=== PATIENT | male | born 1980 | race Two or more races ===

== ENCOUNTER 2018-06-03 13:12 | Emergency (ER) | payer OTHER ==
[~2018-06-03] VITALS: Ht 182.9 cm; Wt 117.0 kg
--- NOTE | 2018-06-03 13:15 | NUR ---
PT TO ER BED 10. HERE FOR CHEST PAIN /10 TO LUE X 3 DAYS. PT ALSO ENDORSES COUGH AND FEVER. GOWNED AND PLACED ON MONITOR. VSS. AWAITING MD SEYMOUR.
--- NOTE | 2018-06-03 13:23 | NUR ---
MORAIMA LORD AT BEDSIDE FOR EVAL.
--- NOTE | 2018-06-03 13:54 | NUR ---
IV ACCESS STARTED. BLOOD DRAWN FOR LABS.
[2018-06-03 13:55] LABS: BASOPHILS # (AUTO) 0.1 /CMM (0.0-0.2); BASOPHILS % (AUTO) 1.6 % (0.0-2.0); EOSINOPHILS % (AUTO) 3.1 % (0.0-6.0); HEMATOCRIT 46 % (39-51); HEMOGLOBIN 15.2 g/dL (13.5-17.5); LYMPHOCYTES # (AUTO) 3.4 /CMM (0.8-4.8); LYMPHOCYTES % (AUTO) 37.8 % (20.0-44.0); MEAN CORPUSCULAR HEMOGLOBIN 29 PG (26.0-33.0); MEAN CORPUSCULAR HGB CONC 33 g/dl (31.0-36.0); MEAN CORPUSCULAR VOLUME 88 fL (80-96); MONOCYTES # (AUTO) 0.6 /CMM (0.1-1.30); MONOCYTES % (AUTO) 6.9 % (2.0-12.0); NEUTROPHILS # (AUTO) 4.5 /CMM (1.8-8.9); NEUTROPHILS % (AUTO) 50.6 % (43.0-81.0); PLATELET COUNT (AUTO) 231 /CMM (150-450); RED BLOOD CELL COUNT(AUTO) 5.26 MIL/uL (4.5-6.0); WHITE BLOOD COUNT (AUTO) 8.9 K/uL (4.3-11.0)
[2018-06-03 14:05] LABS: CALCIUM, SERUM 9.1 mg/dL (8.5-10.1); CARBON DIOXIDE 29 mmol/L (21-32); CHLORIDE 106 mmol/L (98-107); CREATININE 1.2 mg/dL (0.6-1.3); GLUCOSE 106 mg/dL (74-106); SODIUM SERUM 139 mmol/L (136-145); UREA NITROGEN, BLOOD 17 mg/dL (7-18)
[2018-06-03 14:08] LABS: INR 0.91 (0.85-1.15)
[2018-06-03 14:13] LABS: TROPONIN I < 0.017 ng/mL (0.00-0.056)
[2018-06-03 14:17] LABS: B-TYPE NATRIURETIC PEPTIDE 129 PG/ML (0-125)
[2018-06-03 14:27] LABS: APPEARANCE,URINE Clear (CLEAR); BILIRUBIN,URINE Negative (NEGATIVE); BLOOD, URINE Negative Ery/uL (NEGATIVE); COLOR,URINE Yellow (YELLOW); KETONES,URINE Negative (NEGATIVE); LEUKOCYTE ESTERASE ,URINE Negative (NEGATIVE); NITRITE, URINE Negative (NEGATIVE); PH,URINE 6.5 (5.0-8.0); PROTEIN,URINE Negative (NEGATIVE); UGLUCOSE Negative (NEGATIVE); UROBILINOGEN,URINE 0.2 EU/dL (0.2)
--- NOTE | 2018-06-03 14:34 | NUR ---
RADIOLOGY AT BEDSIDE FOR CHEST XRAY.
--- NOTE | 2018-06-03 17:40 | NUR ---
Patient discharged to home in stable condition. Written and verbal after care instructions given. Patient verbalizes understanding of instruction. IV removed. Catheter intact and site benign. Pressure and 4x4 applied to site. No bleeding noted.
[2018-06-03 17:41] VITALS: BP 126/78
== END 2018-06-03 17:43 | disposition home or self-care (01) ==
LOC: ER 13:18
DX: R07.89 Other chest pain (principal); R60.9 Edema, unspecified; F17.210 Nicotine dependence, cigarettes, uncomplicated
CPT/HCPCS: 36415; 71045; 80048; 81001; 83880; 84484 ×2; 85025; 85730; 93005; 99285; A4606; Z7610; 81000-TC

== ENCOUNTER 2019-04-01 12:53 | Emergency (ER) | payer OTHER ==
[~2019-04-01] VITALS: Ht 182.9 cm; Wt 105.7 kg
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
[2019-04-01] MEDS ORDERED: IV NS 0.9% 1,000 ML BAG IV ONE (13:30)
[2019-04-01 13:43] LABS: BASOPHILS % (AUTO) 0.8 % (0.0-2.0); EOSINOPHILS % (AUTO) 1.4 % (0.0-6.0); HEMATOCRIT 42 % (39-51); HEMOGLOBIN 13.9 g/dL (13.5-17.5); LYMPHOCYTES # (AUTO) 0.9 /CMM (0.8-4.8); LYMPHOCYTES % (AUTO) 18.3 % (20.0-44.0); MEAN CORPUSCULAR HGB CONC 33 g/dl (31.0-36.0); MEAN CORPUSCULAR VOLUME 89 fL (80-96); MONOCYTES # (AUTO) 0.6 /CMM (0.1-1.30); MONOCYTES % (AUTO) 11.2 % (2.0-12.0); NEUTROPHILS # (AUTO) 3.4 /CMM (1.8-8.9); NEUTROPHILS % (AUTO) 68.3 % (43.0-81.0); PLATELET COUNT (AUTO) 191 /CMM (150-450)
[2019-04-01 13:53] LABS: CALCIUM, SERUM 9.3 mg/dL (8.5-10.1); CARBON DIOXIDE 27 mmol/L (21-32); CHLORIDE 102 mmol/L (98-107); GLUCOSE 158 mg/dL (74-106); POTASSIUM 3.7 mmol/L (3.5-5.1); SODIUM SERUM 140 mmol/L (136-145); UREA NITROGEN, BLOOD 20 mg/dL (7-18)
[2019-04-01 13:59] LABS: ALANINE AMINOTRANSFERASE 29 U/L (12-78); ALBUMIN 2.9 g/dL (3.4-5.0); ALKALINE PHOSPHATASE 89 U/L (46-116); ASPARTATE AMINOTRANSFERASE 11 U/L (15-37); BILIRUBIN,TOTAL 0.4 mg/dL (0.2-1.0); TOTAL PROTEIN, SERUM 7.5 g/dL (6.4-8.2)
--- NOTE | 2019-04-01 14:23 | NUR ---
CALLED THE OFFICE OF DOCTOR MAHENDRA AT . UNABLE TO REACH [facility], VOICEMAIL WAS LEFT.
[2019-04-01] MEDS ORDERED: IBUPROFEN SUSP 100 MG/5 ML UDC PO PRN (14:30)
[2019-04-01] MEDS ORDERED: IBUPROFEN SUSP 100 MG/5 ML UDC ONE (14:36)
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
[2019-04-01] MEDS ORDERED: HYDR118S10 PO (14:59)
[2019-04-01] MEDS ORDERED: LIDO20SO13 PO (14:59)
--- NOTE | 2019-04-01 15:30 | NUR ---
CALLED [facility] TO INITIATE TRANSFER
--- NOTE | 2019-04-01 15:33 | NUR ---
CALLED [facility] TO HAVE IMAGES READ
--- NOTE | 2019-04-01 15:47 | NUR ---
[facility] CALLED AND INFORMED ME THAT THEY ARE AT CAPACITY AT THEIR FACILITY AND CANNOT ACCOMODATE THE PT
--- NOTE | 2019-04-01 15:52 | NUR ---
CALLED DR GUTIÉRREZ OFFICE AND WAS UNABLE TO REACH ANYONE. LEFT A VOICEMAIL.
[2019-04-01] MEDS ORDERED: CEFTRIAXONE 1 G in IV D5W 50 ML IV ONE (16:00)
[2019-04-01] MEDS ORDERED: CEFTRIAXONE 1GM BAG (ER ONLY) 50 ML IV ONE (16:05)
--- NOTE | 2019-04-01 16:35 | NUR ---
Patient is resting comfortably in bed with eyes closed. Easily aroused. VSS
[2019-04-01] MEDS ORDERED: DEXAMETHASONE SOD PHOSPHATE 10 MG/ML VIAL ONE (16:50)
[2019-04-01] MEDS ORDERED: DEXAMETHASONE SOD PHOSPHATE 10 MG/ML VIAL IV ONE (17:00)
--- NOTE | 2019-04-01 17:14 | NUR ---
IV removed. Catheter intact and site benign. Pressure and 4x4 applied to site. No bleeding noted.Patient discharged to home in stable condition. Written and verbal after care instructions given. Patient verbalizes understanding of instruction.
[2019-04-01 17:15] VITALS: BP 121/84
== END 2019-04-01 17:15 | disposition home or self-care (01) ==
LOC: ER 12:55
DX: E86.0 Dehydration (principal); R73.9 Hyperglycemia, unspecified; C32.9 Malignant neoplasm of larynx, unspecified; Z60.2 Problems related to living alone
CPT/HCPCS: 36415; 71045; 80048; 80076; 83605; 84484; 85025; 85730; 87040 ×2; 87081; 87804 ×2; 93005; 96361; 96365; 96375; 99284; A4216; J0696; J1100; J7030; J7050; J7060; 87400